=== PATIENT | male | born 1960 | race Caucasian/White ===

== ENCOUNTER 2019-01-21 10:21 | Inpatient (IN) ==
[2019-01-21] MEDS ORDERED: FAMOTIDINE 20 MG TAB PO ONE (11:14)
[2019-01-21] MEDS ORDERED: SUCRALFATE 1 GM TAB PO STA (11:14)
[2019-01-21] MEDS ORDERED: GI COCKTAIL ED USE PO ONE (11:14)
[2019-01-21 11:38] LABS: Basophils # (auto) 0.04 K/uL (0-0.2); Basophils % (auto) 0.6 %; Eosinophils # (auto) 0.11 K/uL (0-0.5); Eosinophils % (auto) 1.7 %; Hematocrit (blood only) 47.1 % (42-52); Hemoglobin 16.8 g/dL (14.0-18.0); Immature Granulocytes # (auto) 0.01 K/uL (0.00-0.02); Immature Granulocytes % (auto) 0.2 %; Lymphocytes # (auto) 1.15 K/uL (1.2-3.4); Mean Corpuscular Hgb Conc 35.7 g/dL (32-36); Mean Corpuscular Volume 85.9 fL (80-100); Monocytes # (auto) 0.61 K/uL (0.11-0.59); Monocytes % (auto) 9.5 %; Neutrophils # (auto) 4.47 K/uL (1.4-6.5); Platelet Count 194 K/uL (130-400); RDW Coefficient of Variation 13.5 % (11.5-14.5); RDW Standard Deviation 42.4 fL (36.4-46.3); Red Blood Count 5.48 M/uL (4.7-6.1); White Blood Count 6.39 K/uL (4.8-10.8)
[2019-01-21] MEDS ORDERED: ASPIRIN CHEW 324 MG PO STA (11:40)
--- NOTE | 2019-01-21 11:43 | XRay Report ---
SINGLE VIEW CHEST CLINICAL HISTORY: Atypical chest pain. FINDINGS: An AP, portable, upright chest radiograph is compared to study dated 01/16/2019. The examinat ion is degraded by portable technique and patient rotation. The heart is mildly enlarged. The media stinal contour is within normal limits. The pulmonary vasculature is noncongested. The lungs and pleu ral spaces are clear. No pneumothorax is seen. The bony thorax is grossly intact. Calcific tendinopat hy is noted in the right shoulder. IMPRESSION: No acute cardiopulmonary abnormality. Electronically signed by: Yrn Nichole M.D. 01/21/2019 11:41 AM
[2019-01-21 11:57] LABS: BUN Creatinine Ratio 15.3 (10-20); Calcium 9.1 mg/dl (8.5-10.1); Creatinine Clr Calc Pharmacy 69.3 ml/min; Est GFR (Non-African American) 61.3; Potassium 4.4 mmol/L (3.5-5.1)
[2019-01-21 12:06] LABS: Albumin Globulin Ratio 1.1 (0.9-2); Bilirubin,Total 0.5 mg/dl (0.2-1); Creatine Kinase MB 2.6 ng/ml (0.5-3.6); Globulin 3.8 gm/dl (2.5-4.0); Total Protein 7.8 gm/dl (6.4-8.2); Troponin I 0.492 ng/ml (0-0.045)
[2019-01-21] MEDS ORDERED: NITROGLYCERIN 2% OINTMENT 30GM TUBE EXT STA (12:09)
--- NOTE | 2019-01-21 12:43 | Cardiology Consultation ---
Date of Consultation January 21, 2019 Assessment & Plan (1) NSTEMI (non-ST elevated myocardial infarction): This is the patient's second ER visit in several days due to chest pain. He now has new EKG changes and a slight elevation in his cardiac troponins which may be consistent with a non-STEMI. He is also having ongoing mild chest discomfort radiating to his back. I think the patient should undergo an urgent cardiac catheterization. I have explained the risk, benefit and intent of the procedure to him including the potential for a catheter-based intervention such as balloon angioplasty or intracoronary stents. He is willing to proceed. History of Present Illness History of Present Illness This is a 58-year-old male patient who presented to the emergency department with chest pain. He had been here previously several days ago and seen for chest discomfort. He was treated and released. He returned today because his chest pain has been off and on and then this morning he has had discomfort with minimal activity such as walking across the room. He describes it as a burning or heaviness in the center of his chest radiating to his back. When comparing his EKG to the previous done several days ago he has new T wave inversions in the lateral precordial leads. He also has a slight elevation in his cardiac troponin [id number] in the emergency department. He denies shortness of breath but is having ongoing discomfort. Allergies Allergy/AdvReac Type Severity Reaction Status Date / Time No Known Allergies Allergy Verified 01/21/19 11:08 Home Medications Home Medications Medication Instructions Recorded Confirmed Type Al hyd-Mg tr-alg ac-sod bicarb 1 tab PO UD 01/21/19 01/21/19 History [Gaviscon] famotidine 20 mg PO BID 01/21/19 01/21/19 History omeprazole 20 mg PO QAM 01/21/19 01/21/19 History Patient History Medical History Biceps tendon rupture (Chronic) s/p repair GERD (gastroesophageal reflux disease) (Chronic) Cyst of neck (Chronic) Surgical History History of dental surgery (Chronic) Family History Mother Hypertension Daughter Diabetes Social History marital status: Current Living Situation: Family current occupational status: employed Feels Safe at Home: Yes Smoking Status: Never smoker Hx Alcohol Use: Yes Alcohol Intake Frequency: Weekly Review of Systems Review of Systems: All systems reviewed & are unremarkable except as noted in HPI & below The patient avoids doctors however, he has almost no significant past medical history. No prior history of diabetes, hypertension, strokes, kidney disease or smoking history. Physical Exam Physical Exam: General: no acute distress and stated age Head: normocephalic, no masses, lesions, tenderness or abnormalities Eyes: conjunctiva are pink and non-injected, sclera clear Neck: supple, no adenopathy, no bruits, normal jugular venous pulse, no hepatojugular reflux Chest: normal shape and normal respiratory effort Lungs: clear to auscultation and percussion Cardiac Exam: - regular rate & rhythm, no murmurs gallops or rubs - normal S1, normal S2 Pulses: 2(+) throughout Abdomen: abdomen soft, non-tender, no abnormal masses and no hepatosplenomegaly Musculoskeletal: no gait disturbance, no joint inflammation, no deforming arthritis Extremities: no edema and no cyanosis Neuro: grossly normal exam Results & Data Vital Signs (Past 12 Hours) Vital Signs Temp Pulse Resp BP Pulse Ox 01/21/19 10:23 36.6 C 71 16 156/83 H 97 Laboratory Results Laboratory Results - last 24 hr 01/21/19 01/21/19 01/21/19 11:28 11:28 11:28 WBC 6.39 RBC 5.48 Hgb 16.8 Hct 47.1 MCV 85.9 MCH 30.7 MCHC 35.7 RDW Std Deviation 42.4 RDW Coeff of Primo 13.5 Plt Count 194 MPV 11.0 H Immature Gran % (Auto) 0.2 Neut % (Auto) 70.0 Lymph % (Auto) 18.0 [place] % (Auto) 9.5 Eos % (Auto) 1.7 Baso % (Auto) 0.6 Immature Gran # (Auto) 0.01 Neut # (Auto) 4.47 Lymph # (Auto) 1.15 L [place] # (Auto) 0.61 H Eos # (Auto) 0.11 Baso # (Auto) 0.04 PT Pending INR Pending APTT Pending PTT Ratio Pending Sodium 139 Potassium 4.4 Chloride 107 Carbon Dioxide 28 Anion Gap 4.0 BUN 20 H Creatinine 1.28 Est Cr Clr Drug Dosing 69.3 Est GFR ( Amer) 71.0 Est GFR (Non-Af Amer) 61.3 BUN/Creatinine Ratio 15.3 Glucose 96 Calcium 9.1 Total Bilirubin 0.5 AST 20 ALT 28 Alkaline Phosphatase 79 Total Creatine Kinase 173 CK-MB (CK-2) 2.6 CK/CKMB % Calc 1.5 Troponin I 0.492 H* Total Protein 7.8 Albumin 4.0 Globulin 3.8 Albumin/Globulin Ratio 1.1 Lipase 101 Medications Administered Current Inpatient Medications Sodium Chloride (Nss 1000ml) 1,000 mls @ 1 mls/hr IV .Q24H [facility] Stop: 02/20/19 12:44
[2019-01-21 12:44] LABS: Partial Thromboplastin Ratio 0.9; Partial Thromboplastin Time 24.5 Seconds (21.0-31.0); Prothrombin Time 10.6 Seconds (9.0-12.0)
[2019-01-21] MEDS ORDERED: NiCARDipine HCL INJ 2.5 MG/ML 10 ML AMP ONE (12:49)
[2019-01-21] MEDS ORDERED: MIDAZOLAM HCL 1 MG/ML 2ML VIAL ONE (12:49)
[2019-01-21] MEDS ORDERED: HEPARIN (PORCINE) 1000 UNIT/ML 10 ML (CATH LAB USE ONLY) ONE ×2 (12:49→13:57)
[2019-01-21] MEDS ORDERED: fentaNYL citrate 100 MCG/2 ML VIAL ONE ×2 (12:49→14:06)
[2019-01-21] MEDS ORDERED: NITROGLYCERIN/D5W 100MCG/ML 20ML SYR ONE (12:50)
--- NOTE | 2019-01-21 13:13 | History & Physical Report ---
Date of Service January 21, 2019 Assessment & Plan (1) NSTEMI (non-ST elevated myocardial infarction): -Patient presenting from home with reports of increasing chest/back pain over the past 5 days -He was seen in the ED on 01/16 and given GI cocktail with improvement in symptoms, patient discharged home with outpatient follow-up -In the ED today, EKG shows new T wave inversions anteriorly and troponin is elevated at 0.492 -No risk factors identified -Patient continues to have chest pain while in the ER, evaluated by cardiology at the bedside and will be taken to the Surgical Scrub Technician for further evaluation -Further orders as per cardiology post-cath (2) GERD (gastroesophageal reflux disease): -PPI and H2 dilshad (3) DVT prophylaxis: -SCDs post cath History of Present Illness Chief Complaint: Chest pain Primary Care Provider: Dr. Malave 58 year old male who presents to the ED with chest pain. Patient was seen in the ED on 01/16 for similar symptoms. Patient was given a GI cocktail at that time with improvement in symptoms and was sent home with outpatient follow-up. Patient reports that since then, he has had increasing episodes of this chest discomfort. He describes the pain is located between his shoulder blades radiating into the front of his mid chest. This morning, patient reports he took his dog out for a walk and developed the chest pain shortly after. Reports resolution of the pain after taking a rest. He notes increased episodes of belching. He rates the pain at its worst as a #8/10. He denies associated shortness of breath, diaphoresis, nausea, lightheadedness, dizziness, syncopal event. Reports he otherwise been feeling well recently. No fevers or chills. Denies abdominal pain, vomiting, diarrhea. No urinary symptoms. In the ED, EKG shows new T wave inversions anteriorly and troponin is elevated 0.492. At the time my exam, patient reports persistent pain, rating a #5/10. Cardiology was consulted and evaluated the patient at the bedside and patient will be going to the cardiac Surgical Scrub Technician for further intervention. Allergies Allergy/AdvReac Type Severity Reaction Status Date / Time No Known Allergies Allergy Verified 01/21/19 11:08 Home Medications Home Medications Medication Instructions Recorded Confirmed Type Al hyd-Mg tr-alg ac-sod bicarb 1 tab PO UD 07/09/19 07/09/19 History [Gaviscon] famotidine 20 mg PO BID 01/21/19 01/21/19 History omeprazole 20 mg PO QAM 01/21/19 01/21/19 History Past Med/Surg History Medical History Biceps tendon rupture (Chronic) s/p repair GERD (gastroesophageal reflux disease) (Chronic) Cyst of neck (Chronic) Surgical History History of dental surgery (Chronic) Family History Mother Hypertension Daughter Diabetes Social History Communication Ability: Effective Hand Edger Required: No Beliefs That Will Affect Care: None marital status: Current Living Situation: Family current occupational status: employed Feels Safe at Home: Yes Safety Concerns: Feels Safe At This Time Smoking Status: Never smoker Hx Alcohol Use: No Hx Substance Use: No Review of Systems Review of Systems: ROS per HPI, all other systems reviewed and negative Physical Exam Constitutional: WD/WN, vitals as above Eyes: PERRL, conjunctivae normal, anicteric sclerae ENMT: external ear and nose normal, oropharynx normal Respiratory: normal respiratory effort, lungs clear to auscultation Cardiovascular: Rate/Rhythm: regular rate and regular rhythm Vessels: normal peripheral pulses Extremities: no edema Gastrointestinal (Abdomen): normal bowel sounds, soft, nontender, no hepatosplenomegaly Musculoskeletal: no cyanosis or clubbing, extremities motor strength 5/5 Skin: no rashes, warm and dry cyst noted at base of neck - no signs of infection Neurologic: PERRL, EOMI, accommodation nl, no face palsy, no dysarthria Psychiatric: A+Ox3, euthymic affect Results & Data Vital Signs (Past 12 Hours) Vital Signs Temp Pulse Resp BP Pulse Ox 01/21/19 10:23 36.6 C 71 16 156/83 H 97 Laboratory Results Short CBC 01/21/19 Range/Units 11:28 WBC 6.39 (4.8-10.8) K/uL Hgb 16.8 (14.0-18.0) g/dL Hct 47.1 (42-52) % Plt Count 194 (130-400) K/uL BMP 01/21/19 11:28 Sodium 139 Potassium 4.4 Chloride 107 Carbon Dioxide 28 BUN 20 H Creatinine 1.28 Glucose 96 Calcium 9.1 Cardiac Enzymes 01/21/19 Range/Units 11:28 Total Creatine Kinase 173 (39-308) U/L CK-MB (CK-2) 2.6 (0.5-3.6) ng/ml Troponin I 0.492 H* (0-0.045) ng/ml Liver Function 01/21/19 Range/Units 11:28 Total Bilirubin 0.5 (0.2-1) mg/dl AST 20 (15-37) U/L ALT 28 (12-78) U/L Alkaline Phosphatase 79 (45-117) U/L Albumin 4.0 (3.4-5.0) gm/dl Diagnostic Findings CXR IMPRESSION: No acute cardiopulmonary abnormality. Code Status & VTE Plan VTE Prophylaxis Plan VTE Prophylaxis will be ordered: Yes Supervising Physician Co-Signing Physician Notes Patient is a 58-year-old male with history of GERD presents with history of chest pain, retrosternal, radiates to the back, shoulder associated with transient shortness of breath. Patient troponin was elevated at 0.4. EKG showed ST, T wave changes in lateral leads. Patient had cardiac catheterization and was found to have acute occlusion of the first diagonal. Patient had drug- eluting stent placement by Dr. Anthony Cerrato. Patient is doing well post cath. Chest pain completely resolved. Denies any shortness of breath, dizziness, nausea. On exam patient is moderately built and nourished, no apparent distress, normocephalic atraumatic, lungs are clear to auscultation, S1-S2, no murmur, abdomen soft nontender, grossly no focal neurological deficits, no pedal edema. Patient is admitted to telemetry unit for management of NSTEMI. Started on aspirin, Plavix, Lipitor. Will consider metoprolol based on cardiology recommendations. Appreciate cardiology help. Counseled about lifestyle changes. I personally reviewed the record. Patient is interviewed and examined at bedside. Patient's care is coordinated with Carmen Martinez NP. Please refer to the documentation above for details of patient's presentation and for discussion of other issues.
[2019-01-21] MEDS ORDERED: CLOPIDOGREL BISULFATE 300 MG TAB ONE (14:09)
--- NOTE | 2019-01-21 14:11 | Post Anesthesia Assessment ---
Date of Service January 21, 2019 Post Sedation Assessment Vital Signs Temp Pulse Resp BP Pulse Ox 01/21/19 10:23 36.6 C 71 16 156/83 H 97 Recovery Score Activity: Moves 4 extremities Respiration: Deep Breath/Cough Circulation: +/-20% PreAnes Value Consciousness: Fully Awake Oxygen Saturation: O2 needed for >90% Discharge Sedation Level of Care: Fast Track Phase II Post Sedation Plan On clinical assessment, the patient appears to have tolerated the sedation without complications. Patient is recovering as anticipated. Patient will continue to be monitored by nursing and may be discharged when sedation discharge criteria are met per below protocol. Upon Completions of procedure and additional 15 minutes continue every 5 minute vital signs and the P.A.R. score; then discharge to a Phase I or Fast Track to Phase II per the following guidelines: * Discharge Patient to appropriate Phase II area if PAR is 8 or greater or return to pre- procedure baseline. The post - procedure orders will be as directed. * If PAR score is less than 8 or not return to pre-procedure baseline then patient will follow Phase I monitoring till PAR is reached for Phase II. The Phase I may be done in procedure room or may call to secure a Phase I area. * If naloxone or flumazenil are used for reversal, hold in Phase I for continued monitoring from when last reversal dose was given for a minimum of 60 minutes or longer pending the nurse and/or physician discretion of patient condition before discharge to Phase II. Please call the Sedation Physician to re-evaluate and complete post-note for discharge to Phase II area. Do NOT discharge from procedure sedation or Phase 1 until post- sedation evaluation note is complete by procedure /sedation MD Sedation Discharge Instructions to be given to the patient at discharge to home.
[2019-01-21] MEDS ORDERED: ONDANSETRON INJ 2 MG/ML 2 ML VIAL IV PRN (14:17)
--- NOTE | 2019-01-21 14:17 | Cardiac Catheterization ---
Cardiac Cath Procedure Full Procedure Date January 21, 2019 Pre-Procedure Diagnosis Pre-Procedure Diagnosis: Non STEMI AUC Score AUC Score: 8 Post-Procedure Diagnosis Post-Procedure Diagnosis: Severe CAD and Successful PCI Procedure(s) Performed Procedure(s) Performed: Coronary Angiography, Left Heart Cath and Drug Eluting Stent Refrigeration Plant Operator Anthony Cerrato MD Line Maintainer Section(s) Gautam Estimated Blood Loss Estimated Blood Loss: 10 Medication(s) Medication(s): Clopidogrel, Fentanyl, Heparin, Lidocaine 1%, Nicardipine, Nitroglycerin and Versed Summary of Findings Indication: NSTEMI Access: 6 Fr right radial artery Catheters: EBU 3.5 guide Findings: For full details of patient's coronary angiography please cath report dictated by Dr. Tran. Briefly, patient found to have an acutely occluded first diagonal. Decision to proceed with PCI. -- PCI -- Antithrombotic therapy: Heparin, clopidogrel Procedure: Left main cannulated with EBU 3.5 guide Log Roller 50 wire passed across lesion into distal vessel First diagonal lesion predilated with 2.0 compliant balloon Dilated lesion stented with 2.25 x 22 mm resolute drug-eluting stent from ostium to mid segment of vessel IC vasodilators administered for spasm Post procedure JERRI 3 flow, stent well expanded with minimal residual stenosis and no apparent cardiac complications. Arterial Closure: TR band Summary: 1. Successful PCI of proximal first diagonal with single drug-eluting stent (2.25 x 22 mm resolute). Recommendations: To PCU for continued monitoring Loaded with clopidogrel 600 mg in chemical lab supervisor Continue dual-antiplatelet therapy for at least one year Continue statin, and ASCVD risk factor modification Consult cardiac Rehab Hemodynamics Rest Ao:: 122/59/79 Final Ao: 97/57/75 LV: -- Recommendations Recommendations: PCI without planned CABG Specimens Specimens: None Radiation Exposure (mGy) 3193 Contrast (mls) 250 Fluids (cc crystalloids) Fluids (cc crystalloids): 122 Drains Drains: none Anesthesia moderate Procedural Complication(s) None Disposition PCU ACC Data: Check Embosser Cardiac Status Clinical evaluation leading to the procedure CAD Presenation: Non STEMI Anginal Classification: CCS IV Heart Failure: No Cardiogenic Shock within 24 Hours: No Cardiac Arrest within 24 Hours: No Imaging Studies Past 6 Months: No Stress Studies Past 6 Months: No Diagnostic Physicians Name: Anthony Cerrato MD Status: Elective Closure Device Percutaneous Entry Location: Radial Closure Device: Radial Band Recommendations: PCI without planned CABG PCI Indication: PCI for high risk Non-ROSITA Lesion Segment Name: proximal 1st diagonal Culprit Artery: Yes Stenosis Prior to Rx (%): 100 Chronic Total Occlusion: No IVUS: No FFR: No Pre-Procedure JERRI Flow: 0 Previously Treated Lesion: No Lesion Complexity: Non-High/Non-C Lesion Length (mm): 20 Thrombus Present: Yes Bifurcation Lesion: Yes Guidewire Across Lesion: Stenosis Post-Procedure (%): 0 Post-Procedure JERRI Flow: 3 Devices(s) Deployed: Yes Yes Intraprocedure Events Significant Disection: No Perforation: No
[2019-01-21] MEDS ORDERED: SODIUM CHLORIDE 0.9% 1000ML 1,000 ML IV SCH (14:30)
[2019-01-21] MEDS ORDERED: ACETAMINOPHEN 325 MG TAB PO PRN (14:31)
--- NOTE | 2019-01-21 14:32 | Cardiac Catheterization ---
Date of Service January 21, 2019 Cardiac Cath Report Cardiac Cath Report Procedure: Coronary angiography History: This is a 58-year-old male patient who presented to the emergency department with a non-STEMI. Procedure summary: After informed consent was obtained the patient was taken to the cardiac catheterization lab where he is prepped and draped in usual manner for a right transradial approach. Preformed 5 Mongolian diagnostic catheters were utilized for the coronary angiograms. Following the procedure the patient underwent coronary intervention and then was admitted to the hospital. ACC data: Start time 12:59 AM End time 1:18 PM Opening aortic pressure 94/66 Closing aortic pressure 102/62 LV pressurevalve not crossed Sedation 1 mg Versed IV fluid 42 cc normal saline Contrast 74 cc Fluoroscopy time 4 minutes Radiation 1170 mGy DAP 7515 mGy/m Left dominant system AUC score 9 Coronary angiography: Selective injections of the left coronary artery reveal it to be hyperdominant. There is a large ramus javi from the left main trunk. The left circumflex artery gives off several posterior marginal branches that supply the posterior septum. The LAD extends around the apex of the heart. There is a first diagonal branch with JERRI grade I flow. Selective injections of the right coronary artery reveal it to be nondominant. There is several areas of stenosis within this small nondominant artery. Summary: The index artery for this patient's acute myocardial infarction is a large first diagonal branch. Recommendations: Recommendations are for acute intervention on the diagonal branch from the LAD.
[2019-01-21] MEDS ORDERED: PERFLUTREN LIPID MICROSPHERE (DEFINITY) IV ONE (15:00)
--- NOTE | 2019-01-21 15:06 | Emergency Department Note ---
Entered by Charlee Quintanilla acting as a scribe for History of Present Illness General Chief complaint: Chest Pain Stated complaint: CHEST PAIN Time Seen by Provider: 01/21/19 10:55 Source: patient Mode of arrival: ambulatory Limitations: no limitations History of Present Illness Provider complaint: chest pain Onset (ago): day(s) 6 Location: chest Radiation: non-radiation Pain Consistency: + other (persistent) Maximum Pain Intensity: 10 Current Pain Intensity: 5 Relieved By: + medication (gabastone) Associated symptoms: + other (right arm pain) The patient is a 58 year old male who presents to the ER with complaints of persistent chest pain that began about 6 days ago. The patient reports that he was evaluated at this hospital last for the same and had unremarkable test results. He states that he had a follow-up appointment yesterday with his PCP who started him on Prednisone and instructed him to continue taking his gabastone which the patient notes do alleviate his pain. The patient also reports that he woke up feeling baseline but that shortly after moving around, the pain returned. He states that the pain is located in the center of his chest and rates it a 5/10. He notes that he then drank milk and had pain when swallowing. He denies the pain radiating anywhere but reports he did have some right arm pain. He denies ever having a colonoscopy performed but states he does have a stress test scheduled in a few weeks. Home Medications Home Medications Medication Instructions Recorded Confirmed Type Gaviscon 1 tab PO UD 01/21/19 01/21/19 History famotidine 20 mg PO BID 01/21/19 01/21/19 History aspirin [Ecotrin Low Strength] 81 mg PO QAM 30 Days #30 tab 01/22/19 Rx atorvastatin 40 mg PO HS 30 Days #30 tab 01/22/19 Rx clopidogrel 75 mg PO QAM 30 Days #30 tab 01/22/19 Rx pantoprazole 40 mg PO QAM 30 Days #30 tab 01/22/19 Rx Allergies Allergy/AdvReac Type Severity Reaction Status Date / Time No Known Allergies Allergy Verified 01/21/19 11:08 Past Med/Surg History Medical History Biceps tendon rupture (Chronic) s/p repair GERD (gastroesophageal reflux disease) (Chronic) Cyst of neck (Chronic) Surgical History History of dental surgery (Chronic) Family History Mother Hypertension Daughter Diabetes Social History Communication Ability: Effective Display Trimmer Required: No Beliefs That Will Affect Care: None marital status: Current Living Situation: Family current occupational status: employed Feels Safe at Home: Yes Safety Concerns: Feels Safe At This Time Smoking Status: Never smoker Hx Alcohol Use: No Hx Substance Use: No Review of Systems See HPI for pertinent positives & negatives. and A total of 10 systems reviewed and were otherwise negative Physical Exam Vital Signs Vital Signs - 24 hr 01/21/19 10:23 Temperature 36.6 C Temperature Source Oral Sepsis Recent Fever Within 48 Hours No Sepsis New/Unexplained Change in Mental Status No Sepsis Action Taken by Nursing No Action Required Pulse Rate 71 Respiratory Rate 16 Respiratory Effort / Characteristics Non-Labored Respiratory Depth Normal Blood Pressure 156/83 H Blood Pressure Mean 107 Pulse Oximetry 97 GENERAL: Awake, alert, well-appearing, in no acute distress HENT: Normocephalic, atraumatic. Oropharynx unremarkable. EYES: Normal conjunctiva. Sclera non-icteric. NECK: Supple. No nuchal rigidity. FROM. No JVD. RESPIRATORY: Clear to auscultation. CARDIAC: Regular rate, normal rhythm. Extremities warm and well perfused. Pulses equal. ABDOMEN: Soft, non-distended. No tenderness to palpation. No rebound or guarding. No masses. RECTAL: Deferred. MUSCULOSKELETAL: Chest examination reveals no tenderness. The back is symmetrical on inspection without obvious abnormality. There is no CVA tenderness to palpation. No joint edema. LOWER EXTREMITIES: Calves are equal size bilaterally and non-tender. No edema. No discoloration. NEURO: Normal sensorium. No sensory or motor deficits noted. SKIN: No rash or jaundice noted. Course 1112: Past medical records reviewed. The patient was evaluated in room C7. A complete history and physical examination was performed. 1126: I discussed the patient's case with Dr. Chelsea Cohen Cardiology. He will come down and review the patient's EKGs. 1135: I spoke with Dr. Tran. He recommends admission of the patient. 1152: I discussed the patient's case with BRIGIDA Brown - [facility] Hospitalist. She and her attending will evaluate the patient for further management. Administered Medications Discontinued Medications Al Hydrox/Mg Hydrox/Simethicone () 1 dose PO ONE ONE Stop: 01/21/19 11:15 Last Admin: 01/21/19 11:23 Dose: 1 dose Documented by: [id number] Aspirin (Aspirin) 324 mg PO NOW STA Stop: 01/21/19 11:41 Last Admin: 01/21/19 11:51 Dose: 324 mg Documented by: [id number] Aspirin (Ecotrin Ectab) 81 mg PO [facility] Stop: 02/21/19 08:59 Last Admin: 01/22/19 08:03 Dose: 81 mg Documented by: [id number] Atorvastatin Calcium (Lipitor) 40 mg PO [facility] Stop: 02/20/19 20:59 Last Admin: 01/21/19 20:32 Dose: 40 mg Documented by: [id number] Clopidogrel Bisulfate (Plavix) Confirm Administered Dose 600 mg .ROUTE .STK-MED ONE Stop: 01/21/19 14:10 Last Admin: 01/21/19 14:15 Dose: 600 mg Documented by: [id number] Clopidogrel Bisulfate (Plavix) 75 mg PO [facility] Stop: 02/21/19 08:59 Last Admin: 01/22/19 08:03 Dose: 75 mg Documented by: [id number] Famotidine (Pepcid) 20 mg PO NOW ONE Stop: 01/21/19 11:15 Last Admin: 01/21/19 11:23 Dose: 20 mg Documented by: [id number] Famotidine (Pepcid) 20 mg PO BID [facility] Stop: 02/20/19 20:59 Last Admin: 01/22/19 08:03 Dose: 20 mg Documented by: [id number] Admin: 01/21/19 20:32 Dose: 20 mg Documented by: [id number] Fentanyl Citrate (Fentanyl Citrate) Confirm Administered Dose 100 mcg .ROUTE .STK-MED ONE Stop: 01/21/19 12:50 Last Admin: 01/21/19 14:01 Dose: Not Given Documented by: [id number] Fentanyl Citrate (Fentanyl Citrate) Confirm Administered Dose 100 mcg .ROUTE .STK-MED ONE Stop: 01/21/19 14:07 Last Admin: 01/21/19 15:11 Dose: Not Given Documented by: [id number] Heparin Sodium (Porcine) (Heparin Iv Bolus (Gill Box Operator Use Only)) Confirm Administered Dose 10,000 units .ROUTE .STK-MED ONE Stop: 01/21/19 12:50 Last Admin: 01/21/19 13:59 Dose: 10,000 units Documented by: [id number] Heparin Sodium (Porcine) (Heparin Iv Bolus (Gill Box Operator Use Only)) Confirm Administered Dose 10,000 units .ROUTE .STK-MED ONE Stop: 01/21/19 13:58 Last Admin: 01/21/19 14:03 Dose: 1,000 units Documented by: [id number] Heparin Sodium/Sodium Chloride (Heparin/Nss 1000 Unit/500ml Flush Bag) Confirm Administered Dose 3,000 units IV .STK-MED ONE Stop: 01/21/19 12:51 Last Admin: 01/21/19 13:59 Dose: 3,000 units Documented by: [id number] Sodium Chloride (Nss 1000ml) 1,000 mls @ 100 mls/hr IV .Q10H FLROES Stop: 01/21/19 19:29 Last Infusion: 01/21/19 18:40 Dose: 0 mls/hr Documented by: [id number] Admin: 01/21/19 15:12 Dose: 100 mls/hr Documented by: [id number] Midazolam HCl (Versed) Confirm Administered Dose 2 mg .ROUTE .STK-MED ONE Stop: 01/21/19 12:50 Last Increment: 01/21/19 14:00 Dose: 1 mg Documented by: [id number] Nicardipine HCl (Cardene) Confirm Administered Dose 25 mg .ROUTE .STK-MED ONE Stop: 01/21/19 12:50 Last Admin: 01/21/19 13:59 Dose: 25 mg Documented by: [id number] Nitroglycerin (Nitro-Bid 2%) 1 inch EXT NOW STA Stop: 01/21/19 12:10 Last Admin: 01/21/19 14:58 Dose: Not Given Documented by: [id number] Nitroglycerin/Dextrose (Nitroglycerin/D5w 100 Mcg/Ml 20ml Syringe) Confirm Administered Dose 2,000 mcg .ROUTE .STK-MED ONE Stop: 01/21/19 12:51 Last Admin: 01/21/19 13:59 Dose: 2,000 mcg Documented by: [id number] Pantoprazole Sodium (Protonix) 40 mg PO QAM [facility] Stop: 02/21/19 08:59 Last Admin: 01/22/19 08:03 Dose: 40 mg Documented by: [id number] Perflutren Lipid Microsphere (Definity) 2 ml IV ONCE ONE Stop: 01/21/19 15:01 Last Admin: 01/21/19 15:02 Dose: 2 ml Documented by: [id number] Sucralfate (Carafate Tab) 1 gm PO NOW STA Stop: 01/21/19 11:15 Last Admin: 01/21/19 11:22 Dose: 1 gm Documented by: [id number] Medical Decision Making Differential Diagnosis Differential diagnosis includes: cardiac ischemia, aortic dissection, pulmonary embolism, pneumonia, pneumothorax, musculoskeletal pain, infections, pericarditis, myocarditis, esophageal rupture, gastrointestinal, as well as others were entertained. Medical Records Attestation: I reviewed the patient's medical records. The patient was evaluated at this hospital on January 16 for the same. Home Medications Current Medication List: was personally reviewed by me Laboratory Data Attestation: I reviewed the patient's lab results. Result diagrams: 01/22/19 06:48 01/22/19 06:48 Lab Results 01/21/19 01/21/19 01/21/19 Range/Units 11:28 11:28 11:28 WBC 6.39 (4.8-10.8) K/uL RBC 5.48 (4.7-6.1) M/uL Hgb 16.8 (14.0-18.0) g/dL Hct 47.1 (42-52) % MCV 85.9 (80-100) fL MCH 30.7 (25-34) pg MCHC 35.7 (32-36) g/dL RDW Std Deviation 42.4 (36.4-46.3) fL RDW Coeff of Primo 13.5 (11.5-14.5) % Plt Count 194 (130-400) K/uL MPV 11.0 H (7.4-10.4) fL Immature Gran % (Auto) 0.2 % Neut % (Auto) 70.0 % Lymph % (Auto) 18.0 % [place] % (Auto) 9.5 % Eos % (Auto) 1.7 % Baso % (Auto) 0.6 % Immature Gran # (Auto) 0.01 (0.00-0.02) K/uL Neut # (Auto) 4.47 (1.4-6.5) K/uL Lymph # (Auto) 1.15 L (1.2-3.4) K/uL [place] # (Auto) 0.61 H (0.11-0.59) K/uL Eos # (Auto) 0.11 (0-0.5) K/uL Baso # (Auto) 0.04 (0-0.2) K/uL PT 10.6 (9.0-12.0) Seconds INR 1.0 (0.9-1.1) APTT 24.5 (21.0-31.0) Seconds PTT Ratio 0.9 Sodium 139 (136-145) mmol/L Potassium 4.4 (3.5-5.1) mmol/L Chloride 107 (98-107) mmol/L Carbon Dioxide 28 (21-32) mmol/L Anion Gap 4.0 (3-11) BUN 20 H (7-18) mg/dl Creatinine 1.28 (0.6-1.4) mg/dl Est Cr Clr Drug Dosing 69.3 ml/min Est GFR ( Amer) 71.0 Est GFR (Non-Af Amer) 61.3 BUN/Creatinine Ratio 15.3 (10-20) Glucose 96 (70-99) mg/dl Calcium 9.1 (8.5-10.1) mg/dl Total Bilirubin 0.5 (0.2-1) mg/dl AST 20 (15-37) U/L ALT 28 (12-78) U/L Alkaline Phosphatase 79 (45-117) U/L Total Creatine Kinase 173 (39-308) U/L CK-MB (CK-2) 2.6 (0.5-3.6) ng/ml CK/CKMB % Calc 1.5 (0-3.0) Troponin I 0.492 H* (0-0.045) ng/ml Total Protein 7.8 (6.4-8.2) gm/dl Albumin 4.0 (3.4-5.0) gm/dl Globulin 3.8 (2.5-4.0) gm/dl Albumin/Globulin Ratio 1.1 (0.9-2) Lipase 101 (73-393) U/L Imaging Data Radiologist's Impression: Radiology results as stated below per my review and the radiologist's interpretation: SINGLE VIEW CHEST CLINICAL HISTORY: Atypical chest pain. FINDINGS: An AP, portable, upright chest radiograph is compared to study dated 01/16/2019. The examination is degraded by portable technique and patient rotation. The heart is mildly enlarged. The mediastinal contour is within normal limits. The pulmonary vasculature is noncongested. The lungs and pleural spaces are clear. No pneumothorax is seen. The bony thorax is grossly intact. Calcific tendinopathy is noted in the right shoulder. IMPRESSION: No acute cardiopulmonary abnormality. Electronically signed by: Yrn Nichole M.D. 01/21/2019 11:41 AM ECG Data Attestation: I personally reviewed and interpreted this ECG as follows: Indication: chest pain Rate (beats per minute): 63 Rhythm: normal sinus Findings: + T-wave inversion (lateral) Comparison ECG Date: from (16-JAN-2019) Change: the following changes noted (TWI new) Blood Pressure Blood Pressure Findings: Elevated blood pressure Blood Pressure Disposition: further management by hospitalist MDM Narrative This is a 58-year-old male who presents emergency department complaining of chest pain. The patient has an outpatient stress test scheduled however his pain returned this morning and was more severe. He took a GI cocktail at home which seemed to relieve the symptoms. Here in the emergency department the patient was given a GI cocktail Pepcid and Carafate. His EKG is changed from previous therefore the patient was given 324 mg of aspirin and started on Nitropaste. Due to the changes in EKG I did discuss the case with the stamping operator on-call who was kind enough to review the patient's EKGs. We are going to admit the patient to the hospitalist and get an echo. Patient was in agreement with the treatment plan. Patient does not have an elevation his white blood cell count however his troponin is elevated. Impression & Plan NSTEMI (non-ST elevated myocardial infarction), Chest pain Critical Care Time I have personally spent greater than 30 minutes of critical care time in the direct management of this patient. This includes bedside care, interpretation of diagnostic studies, and testing, discussion with consultants, patient, and family members, and other required patient management activities. This 30 minutes is in excess of all separately billable procedures. Discharge Plan Visit Data *Final* Discharge Date/Time: 01/21/19 12:44 Chief Complaint: Chest Pain Stated Complaint: CHEST PAIN ED Provider: Brennan Jim Discharge Problem: NSTEMI (non-ST elevated myocardial infarction), Chest pain Patient Disposition: Admitted As Inpatient Condition: Good Discharge Instructions Interventions: ED Discharge Assessment Last Done: 01/21/19 12:44 Discharge Problem: Chest pain Qualifiers: Chest pain type: unspecified Qualified Code(s): R07.9 - Chest pain, unspecified The scribe's documentation has been prepared under my direction and personally reviewed by me in its entirety. I confirm that the note above accurately reflects all work, treatment, procedures, and medical decision making performed by me.
[2019-01-21] MEDS: FAMOTIDINE 20 MG TAB PO SCH (20:32)
[2019-01-21] MEDS ORDERED: ATORVASTATIN 40 MG TAB PO SCH (21:00)
[2019-01-22] MEDS ORDERED: SODIUM CHLORIDE 0.9% 1000ML 1,000 ML IV SCH
[2019-01-22 07:08] LABS: Hematocrit (blood only) 44.6 % (42-52); Hemoglobin 15.7 g/dL (14.0-18.0); Mean Corpuscular Hgb Conc 35.2 g/dL (32-36); Mean Corpuscular Volume 85.9 fL (80-100); Mean Platelet Volume 10.7 fL (7.4-10.4); Platelet Count 185 K/uL (130-400); RDW Coefficient of Variation 13.7 % (11.5-14.5); RDW Standard Deviation 42.9 fL (36.4-46.3); Red Blood Count 5.19 M/uL (4.7-6.1); White Blood Count 8.16 K/uL (4.8-10.8)
[2019-01-22 07:33] LABS: BUN Creatinine Ratio 14.9 (10-20); Calcium 8.9 mg/dl (8.5-10.1); Est GFR (African American) 67.2; Potassium 4.1 mmol/L (3.5-5.1)
[2019-01-22 07:55] VITALS: PULSE 67
[2019-01-22] MEDS: FAMOTIDINE 20 MG TAB PO SCH (08:03)
[2019-01-22] MEDS ORDERED: PANTOprazole 40 MG TAB PO SCH (09:00)
[2019-01-22] MEDS ORDERED: ASPIRIN 81 MG ECTAB PO SCH (09:00)
[2019-01-22] MEDS ORDERED: CLOPIDOGREL BISULFATE 75 MG TAB PO SCH (09:00)
--- NOTE | 2019-01-22 09:01 | Cardiology Progress Note ---
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 His echocardiogram shows normal LV function and no wall motion abnormalities. He has no complaints today and I would recommend that he ambulate in the hallways and if all is well he can be discharged home. I will arrange follow-up with our clinic. Subjective The patient had an uneventful night with no new cardiac complaints. Review of Systems Review of Systems: All systems reviewed & are unremarkable except as noted in HPI & below Nothing additional Physical Exam Physical Exam: General: no acute distress and stated age Head: normocephalic, no masses, lesions, tenderness or abnormalities Eyes: conjunctiva are pink and non-injected, sclera clear Neck: supple, no adenopathy, no bruits, normal jugular venous pulse, no hepatojugular reflux Chest: normal shape and normal respiratory effort Lungs: clear to auscultation and percussion Cardiac Exam: - regular rate & rhythm, no murmurs gallops or rubs - normal S1, normal S2 Pulses: 2(+) throughout Abdomen: abdomen soft, non-tender, no abnormal masses and no hepatosplenomegaly Musculoskeletal: no gait disturbance, no joint inflammation, no deforming arthritis Extremities: no edema and no cyanosis Neuro: grossly normal exam Results & Data Vital Signs (Past 12 Hours) Vital Signs Temp Pulse Pulse Resp BP Pulse Ox 01/22/19 07:53 37.1 C 67 18 134/80 94 01/22/19 02:50 36.7 C 70 16 108/67 96 01/21/19 23:22 63 01/21/19 22:59 37.0 C 67 16 119/70 97 Laboratory Results Laboratory Results - last 24 hr 01/21/19 01/21/19 01/21/19 11:28 11:28 11:28 WBC 6.39 RBC 5.48 Hgb 16.8 Hct 47.1 MCV 85.9 MCH 30.7 MCHC 35.7 RDW Std Deviation 42.4 RDW Coeff of Primo 13.5 Plt Count 194 MPV 11.0 H Immature Gran % (Auto) 0.2 Neut % (Auto) 70.0 Lymph % (Auto) 18.0 [place] % (Auto) 9.5 Eos % (Auto) 1.7 Baso % (Auto) 0.6 Immature Gran # (Auto) 0.01 Neut # (Auto) 4.47 Lymph # (Auto) 1.15 L [place] # (Auto) 0.61 H Eos # (Auto) 0.11 Baso # (Auto) 0.04 PT 10.6 INR 1.0 APTT 24.5 PTT Ratio 0.9 Activ Coag Time Kaolin Sodium 139 Potassium 4.4 Chloride 107 Carbon Dioxide 28 Anion Gap 4.0 BUN 20 H Creatinine 1.28 Est Cr Clr Drug Dosing 69.3 Est GFR ( Amer) 71.0 Est GFR (Non-Af Amer) 61.3 BUN/Creatinine Ratio 15.3 Glucose 96 Calcium 9.1 Total Bilirubin 0.5 AST 20 ALT 28 Alkaline Phosphatase 79 Total Creatine Kinase 173 CK-MB (CK-2) 2.6 CK/CKMB % Calc 1.5 Troponin I 0.492 H* Total Protein 7.8 Albumin 4.0 Globulin 3.8 Albumin/Globulin Ratio 1.1 Triglycerides Cholesterol LDL Cholesterol, Calc VLDL Cholesterol, Calc HDL Cholesterol Cholesterol/HDL Ratio Lipase 101 01/21/19 01/22/19 01/22/19 13:49 06:48 06:48 WBC 8.16 RBC 5.19 Hgb 15.7 Hct 44.6 MCV 85.9 MCH 30.3 MCHC 35.2 RDW Std Deviation 42.9 RDW Coeff of Primo 13.7 Plt Count 185 MPV 10.7 H Immature Gran % (Auto) Neut % (Auto) Lymph % (Auto) [place] % (Auto) Eos % (Auto) Baso % (Auto) Immature Gran # (Auto) Neut # (Auto) Lymph # (Auto) [place] # (Auto) Eos # (Auto) Baso # (Auto) PT INR APTT PTT Ratio Activ Coag Time Kaolin 202 H Sodium 139 Potassium 4.1 Chloride 108 H Carbon Dioxide 26 Anion Gap 5.0 BUN 20 H Creatinine 1.34 Est Cr Clr Drug Dosing 66.0 Est GFR ( Amer) 67.2 Est GFR (Non-Af Amer) 58.0 BUN/Creatinine Ratio 14.9 Glucose 87 Calcium 8.9 Total Bilirubin AST ALT Alkaline Phosphatase Total Creatine Kinase CK-MB (CK-2) CK/CKMB % Calc Troponin I Total Protein Albumin Globulin Albumin/Globulin Ratio Triglycerides 112 Cholesterol 170 LDL Cholesterol, Calc 105 VLDL Cholesterol, Calc 22 HDL Cholesterol 43 Cholesterol/HDL Ratio 4 Lipase Medications Administered Current Inpatient Medications Acetaminophen (Tylenol) 650 mg PO Q4H PRN PRN Reason: Pain or Fever Stop: 02/20/19 14:30 [facility] ([facility]) [facility] Stop: 02/21/19 08:59 Last Admin: 01/22/19 08:03 Dose: 81 mg Documented by: Atorvastatin Calcium (Lipitor) 40 mg PO [facility] Stop: 02/20/19 20:59 Last Admin: 01/21/19 20:32 Dose: 40 mg Documented by: Clopidogrel Bisulfate (Plavix) 75 mg PO [facility] Stop: 02/21/19 08:59 Last Admin: 01/22/19 08:03 Dose: 75 mg Documented by: Famotidine (Pepcid) 20 mg PO BID [facility] Stop: 02/20/19 20:59 Last Admin: 01/22/19 08:03 Dose: 20 mg Documented by: Ondansetron HCl (Zofran) 4 mg IV Q6H PRN PRN Reason: Nausea And Vomiting Stop: 02/20/19 14:16 Pantoprazole Sodium (Protonix) 40 mg PO [facility] Stop: 02/21/19 08:59 Last Admin: 01/22/19 08:03 Dose: 40 mg Documented by:
[2019-01-22 11:45] VITALS: BP 123/70; TEMP 98.2; O2SAT 96
--- NOTE | 2019-01-22 12:04 | Hospitalist Progress Note ---
Date of Service January 22, 2019 Assessment & Plan (1) NSTEMI (non-ST elevated myocardial infarction): -Patient presenting from home with reports of increasing chest/back pain over the past 5 days -As per the criteria of increasing troponin and EKG changes -Status post cardiac cath and to placement of drug-eluting stent S GI vessel -Has been feeling a lot better without any cardiac symptoms -Has been ambulating well without any difficulty -Likely be discharged today (2) GERD (gastroesophageal reflux disease): -PPI and H2 dilshad (3) DVT prophylaxis: -SCDs post cath Subjective 01/22 Patient was seen and examined in telemetry unit He is a status post cardiac cath and stent placement in large diagonal from the LAD He has been ambulating the hallway without any significant symptoms Likely to be discharged this afternoon Review of Systems Review of Systems: All systems reviewed and are unremarkable except as noted below Cardiovascular: no chest pain Physical Exam Physical Exam: Sitting on a chair out of bed without any symptoms Constitutional: WD/WN, vitals as above Eyes: PERRL, conjunctivae normal, anicteric sclerae ENMT: external ear and nose normal, oropharynx normal Neck: trachea midline, no thyromegaly Respiratory: normal respiratory effort Auscultation: lungs clear to auscultation bilaterally Cardiovascular: Rate/Rhythm: regular rate and regular rhythm Vessels: normal peripheral pulses Extremities: no edema Gastrointestinal (Abdomen): Inspection/Auscultation: abdomen normal to inspection and normal bowel sounds Percussion/Palpation: abdomen soft; abdomen nontender Musculoskeletal: No acute arthritis in any joint Skin: no rashes, warm and dry Neurologic: PERRL, EOMI, accommodation nl, no face palsy, no dysarthria Psychiatric: A+Ox3, euthymic affect Lymphatic: no cervical or axillary lymphadenopathy Results & Data Vital Signs (Past 12 Hours) Vital Signs Temp Pulse Resp BP Pulse Ox 01/22/19 11:44 36.8 C 67 18 123/70 96 01/22/19 07:53 37.1 C 67 18 134/80 94 01/22/19 02:50 36.7 C 70 16 108/67 96 Laboratory Results Short CBC 01/22/19 Range/Units 06:48 WBC 8.16 (4.8-10.8) K/uL Hgb 15.7 (14.0-18.0) g/dL Hct 44.6 (42-52) % Plt Count 185 (130-400) K/uL BMP 01/22/19 06:48 Sodium 139 Potassium 4.1 Chloride 108 H Carbon Dioxide 26 BUN 20 H Creatinine 1.34 Glucose 87 Calcium 8.9 Medications Administered Current Inpatient Medications Acetaminophen (Tylenol) 650 mg PO Q4H PRN PRN Reason: Pain or Fever Stop: 02/20/19 14:30 Aspirin (Ecotrin Ectab) 81 mg PO [facility] Stop: 02/21/19 08:59 Last Admin: 01/22/19 08:03 Dose: 81 mg Documented by: Atorvastatin Calcium (Lipitor) 40 mg PO [facility] Stop: 02/20/19 20:59 Last Admin: 01/21/19 20:32 Dose: 40 mg Documented by: Clopidogrel Bisulfate (Plavix) 75 mg PO [facility] Stop: 02/21/19 08:59 Last Admin: 01/22/19 08:03 Dose: 75 mg Documented by: Famotidine (Pepcid) 20 mg PO BID [facility] Stop: 02/20/19 20:59 Last Admin: 01/22/19 08:03 Dose: 20 mg Documented by: Ondansetron HCl (Zofran) 4 mg IV Q6H PRN PRN Reason: Nausea And Vomiting Stop: 02/20/19 14:16 Pantoprazole Sodium (Protonix) 40 mg PO [facility] Stop: 02/21/19 08:59 Last Admin: 01/22/19 08:03 Dose: 40 mg Documented by:
--- NOTE | 2019-01-23 07:59 | Discharge Summary ---
Date of Service January 23, 2019 Admission HPI Per Admitting Provider 58 year old male who presents to the ED with chest pain. Patient was seen in the ED on 01/16 for similar symptoms. Patient was given a GI cocktail at that time with improvement in symptoms and was sent home with outpatient follow-up. Patient reports that since then, he has had increasing episodes of this chest discomfort. He describes the pain is located between his shoulder blades radiating into the front of his mid chest. This morning, patient reports he took his dog out for a walk and developed the chest pain shortly after. Reports resolution of the pain after taking a rest. He notes increased episodes of belching. He rates the pain at its worst as a #8/10. He denies associated shortness of breath, diaphoresis, nausea, lightheadedness, dizziness, syncopal event. Reports he otherwise been feeling well recently. No fevers or chills. Denies abdominal pain, vomiting, diarrhea. No urinary symptoms. In the ED, EKG shows new T wave inversions anteriorly and troponin is elevated 0.492. At the time my exam, patient reports persistent pain, rating a #5/10. Cardiology was consulted and evaluated the patient at the bedside and patient will be going to the cardiac [facility] for further intervention. Admission Exam Per Admitting Provider Constitutional: WD/WN, vitals as above Eyes: PERRL, conjunctivae normal, anicteric sclerae ENMT: external ear and nose normal, oropharynx normal Respiratory: normal respiratory effort, lungs clear to auscultation Cardiovascular: Rate/Rhythm: regular rate and regular rhythm Vessels: normal peripheral pulses Extremities: no edema Gastrointestinal (Abdomen): normal bowel sounds, soft, nontender, no hepatosplenomegaly Musculoskeletal: no cyanosis or clubbing, extremities motor strength 5/5 Skin: no rashes, warm and dry cyst noted at base of neck - no signs of infection Neurologic: PERRL, EOMI, accommodation nl, no face palsy, no dysarthria Psychiatric: A+Ox3, euthymic affect Principal Diagnosis NSTEMI status post cardiac cath and KAREN placement large first diagonal from LAD Discharge Exam Constitutional WD/WN, vitals as above Eyes PERRL, conjunctivae normal, anicteric sclerae ENMT external ear and nose normal, oropharynx normal Neck trachea midline, no thyromegaly Respiratory normal respiratory effort, lungs clear to auscultation normal respiratory effort Auscultation: lungs clear to auscultation bilaterally Cardiovascular Rate/Rhythm: regular rate and regular rhythm Vessels: normal peripheral pulses Extremities: no edema Gastrointestinal (Abdomen) normal bowel sounds, soft, nontender, no hepatosplenomegaly Inspection/Auscultation: abdomen normal to inspection and normal bowel sounds Percussion/Palpation: abdomen soft; abdomen nontender Musculoskeletal no cyanosis or clubbing, extremities motor strength 5/5 Skin no rashes, warm and dry Neurologic PERRL, EOMI, accommodation nl, no face palsy, no dysarthria Psychiatric A+Ox3, euthymic affect Lymphatic no cervical or axillary lymphadenopathy Discharge Data Allergies Allergy/AdvReac Type Severity Reaction Status Date / Time No Known Allergies Allergy Verified 01/21/19 11:08 Consultations 01/21/19 11:29 Consult Cardiology Stat 01/21/19 12:00 ED Decision to Admit Stat Procedures Performed Operation Date: 01/21/19 12:40 Actual Procedures p Cath, Coronaries ONLY (no LV) - DO emily Hudson Cineradiography w/Routine Exam - DO emily Hudson Drug Eluting Stent SGl Vessel - Michael Cerrato MD Ordered Studies 01/21/19 12:41 CL Cath Imgs for PACS use only Stat Hospital Course (1) NSTEMI (non-ST elevated myocardial infarction): -Patient presenting from home with reports of increasing chest/back pain over the past 5 days -As per the criteria of increasing troponin and EKG changes -Status post cardiac cath and to placement of drug-eluting stent S GI vessel -Has been feeling a lot better without any cardiac symptoms -Has been ambulating well without any difficulty -Likely be discharged today (2) GERD (gastroesophageal reflux disease): -PPI and H2 dilshad (3) DVT prophylaxis: -SCDs post cath Total Time Total Time Spent Total Time Spent (In Minutes): 35 minutes Total Time Includes: Examination of the Patient, Discharge Planning, Medication Reconciliation and Communication With Other Providers Discharge Plan Discharge Items Patient Disposition: Home - Self-Care Reason For Visit: NSTEMI Discharge Diagnosis: NSTEMI status post cardiac cath and KAREN placement large first diagonal from LAD Condition: Good Discharge Goals: Decrease discomfort and Improve function Activity: Resume your previous activity Non-emergency contact: Primary Care Provider Call non-emergency contact if: you have any medication questions and your symptoms worsen Follow-up/Referrals: Hudson Malave DO [Primary Care Provider] - 01/27/19 1:00 pm (Cardiology office will call with appointment) Diet: Heart Healthy Addtl Provider Instructions: ACTIVITY RECOMMENDATIONS: Excess manipulation of the wrist should be avoided for the next 24-48 hours. * No lifting over 2 pounds (approximately a 1/2 gallon of milk) with the utilized arm for 24 hours. * No strenuous activity such as bowling or tennis for 3 days. * Keep the site of the procedure covered with a bandage for 24 hours. *You may shower the day after the procedure. Do not take a tub bath or submerge the puncture site in water for the next 3 days. *Do not operate any motorized equipment for 3 days. SPECIAL CARE INSTRUCTIONS: The site may be slightly bruised and sore following your procedure. Should any of the following occur, contact the Dr. who performed your procedure. 1. Redness/inflammation, swelling, chills, or fever, or colored drainage at procedure site within 3-7 days after your procedure. 2. Coldness, discoloration, ongoing numbness, severe pain, or swelling. Expect mild tingling of hand and tenderness at the puncture site for up to three days. If this persists beyond three days, or other symptoms develop, notify the Dr. who performed your procedure. BLEEDING: If the procedure site on your wrist begins to bleed, do not panic 1. Place 1 or 2 fingers firmly just slightly above the insertion site to stop the bleeding. You may be able to feel your pulse as you hold pressure. 2. Lift your finger after 5 minutes to see if the bleeding has stopped. 3. Once the bleeding has stopped, gently wipe the wrist area clean with a bandage. * If the bleeding from your wrist does not stop after 10 minutes, or if there is a large amount of bleeding or spurting, call 911 ([address] drive yourself to the hospital). SKIN IRRITATION: * You may experience some redness and/or swelling in the area where radiation was administered. If any skin irritation occurs, please contact your family physician. FOLLOW UP VISIT: Keep any scheduled doctor appointments. Prescriptions: New atorvastatin 40 mg Tablet 40 mg PO HS 30 Days Qty: 30 RF: 0 clopidogrel 75 mg Tablet 75 mg PO QAM 30 Days Qty: 30 RF: 0 aspirin [Ecotrin Low Strength] 81 mg Tablet,Delayed Release (Dr/Ec) 81 mg PO QAM 30 Days Qty: 30 RF: 0 pantoprazole 40 mg Tablet,Delayed Release (Dr/Ec) 40 mg PO QAM 30 Days Qty: 30 RF: 0 Continued Gaviscon 80-14.2 mg Tablet,Chewable 1 tab PO UD RF: 0 famotidine 20 mg Tablet 20 mg PO BID RF: 0 Discontinued omeprazole 20 mg capsule,delayed release(DR/EC) 20 mg PO QAM RF: 0 Stand-Alone Forms: Call Back Authorization, [facility] Discharge Orders: Discharge Order (Routine); Ordered 01/22/19 Ordered By: Charity Bass Admission Data Admit Date/Time: 01/21/19 12:19 Attending Provider: Charity Bass Admit Provider: Jeremias Grimes Primary Care Provider: Hudson Malave Other Providers: Matias Tran ; Jeremias Grimes ; Laure Valerio Service: Telemetry Other Interventions: Discharge Summary Assessment (RN) Last Done: 01/22/19 14:40 DC Date/Time DO NOT enter until pt leaves facility: 01/22/19 14:57
== END 2019-01-22 14:57 | disposition home or self-care (01) | DRG 247 ==
LOC: ED 10:21 → SUATTDRO 12:19 → 2S 12:44 → CC 12:45 → 2S 12:46
PROC: CLB.CCO (2019-01-21 12:40)
DX: I25.10 Atherosclerotic heart disease of native coronary artery without angina pectoris; K21.9 Gastro-esophageal reflux disease without esophagitis; Z79.899 Other long term (current) drug therapy; I21.4 Non-ST elevation (NSTEMI) myocardial infarction